=== PATIENT | female | born 2000 | race Caucasian/White ===

== ENCOUNTER 2024-12-17 17:55 | Emergency (ER) | payer OTHER | END 2024-12-17 18:50 | disposition home or self-care (01) | LOC: DL.ED 17:55 | DX: S86.891A Other injury of other muscle(s) and tendon(s) at lower leg level, right leg, initial encounter (principal); S86.892A Other injury of other muscle(s) and tendon(s) at lower leg level, left leg, initial encounter; X50.1XXA Overexertion from prolonged static or awkward postures, initial encounter; Y93.02 Activity, running | CPT/HCPCS: 99282; 99283 ==